=== PATIENT | female | born 1980 ===

== ENCOUNTER 2018-07-09 12:20 | Emergency (ER) | payer MEDICAID ==
[2018-07-09 12:20] VITALS: BMI 27.4
[2018-07-09 12:26] VITALS: O2SAT 100
[2018-07-09 12:44] LABS: HCG,QUALITATIVE URINE POSITIVE (NEGATIVE)
[2018-07-09] MEDS ORDERED: Sodium Chloride 0.9% 1,000 ML IV ONE (12:44)
[2018-07-09 12:56] LABS: SQUAMOUS EPITHIAL 3 /hpf (0-5); URINE BILIRUBIN NEGATIVE (NEGATIVE); URINE BLOOD NEGATIVE (NEGATIVE); URINE CLARITY Hazy (Clear); URINE COLOR Yellow (YELLOW); URINE GLUCOSE (UA) NORMAL (Normal); URINE LEUKOCYTE ESTERASE TRACE Leu/uL (Negative); URINE PROTEIN NEGATIVE (NEGATIVE); URINE UROBILINOGEN NORMAL mg/dL (0.2-1.0)
[2018-07-09] MEDS ORDERED: Sodium Chloride 0.9% 1,000 ML ONE (13:06)
[2018-07-09 13:08] LABS: BASO # 0.1 K/uL (0.0-0.2); BASO % 0.7 % (0.0-2.0); EOS # 0.1 K/uL (0.0-0.7); HEMOGLOBIN 12.6 g/dL (11.0-16.0); LYMPH # 1.9 K/uL (1.0-4.3); LYMPH % 13.9 % (20.0-40.0); MEAN CELL VOLUME 73.8 fL (81.0-99.0); MEAN CORPUSCULAR HEMOGLOBIN 24.5 pg (27.0-31.0); MEAN CORPUSCULAR HGB CONC 33.2 g/dL (33.0-37.0); MEAN PLATELET VOLUME 7.8 fL (7.2-11.7); MONO # 0.7 K/uL (0.0-0.8); MONO % 5.4 % (0.0-10.0); NEUT # 10.6 K/uL (1.8-7.0); NRBC % 0.1 % (0.0-2.0); RBC 5.16 Mil/uL (3.80-5.20); WHITE BLOOD COUNT 13.4 K/uL (4.8-10.8)
[2018-07-09 13:23] LABS: ALB/GLOB RATIO 1.3 (1.0-2.1); ALBUMIN 4.2 g/dL (3.5-5.0); ALT/SGPT 16 U/L (9-52); AST/SGOT 18 U/L (14-36); BLOOD UREA NITROGEN 10 mg/dL (7-17); CALCIUM 9.9 mg/dl (8.6-10.4); GFR NON-AFRICAN AMERICAN > 60
--- NOTE | 2018-07-09 14:06 | C.PDOC ---
History Of Present Illness 37 y/o female, M1, presents to ED for evaluation of suprapubic abdominal pain and vaginal bleeding for the last 2 days. Notes she had positive home test 3 days ago. She reports associated nausea. Otherwise, denies vomiting, diarrhea, dysuria, flank pain, fever, chills, or any other complaints at this time. Time Seen by Provider: 07/09/18 12:28 Chief Complaint (Nursing): Female Genitourinary History Per: Patient History/Exam Limitations: no limitations Onset/Duration Of Symptoms: Days Current Symptoms Are (Timing): Still Present Location Of Pain/Discomfort: Suprapubic Radiation Of Pain To:: None Quality Of Discomfort: "Pain" Associated Symptoms: Nausea. denies: Vomiting, Diarrhea Exacerbating Factors: None Alleviating Factors: None Additional History Per: Patient : 4 Para: 2 Miscarriage: 1 Past Medical History Reviewed: Historical Data, Nursing Documentation, Vital Signs Vital Signs: Last Vital Signs Temp 99 F 07/09/18 12:22 Pulse 93 H 07/09/18 12:22 Resp 20 07/09/18 12:22 BP 129/78 07/09/18 12:22 Pulse Ox 100 07/09/18 12:22 - Medical History PMH: Diabetes, HTN (pre-eclampsia) Denies: Hepatitis, HIV, Chronic Kidney Disease, Seizures, Sexually Transmitted Disease - [facility] Procedures DELIVERY OF PRODUCTS OF CONCEPTION, EXTERNAL APPROACH (06/02/16) EPISIOTOMY (01/17/14) MONITORING NOS (12/31/13) MEDICAL INDUCTION LABOR (01/17/14) MONITORING OF POC, CARDIAC RATE, VARITYPIST APPROACH (06/02/16) REPAIR OB LACERATION NEC (01/17/14) Family History: States: Unknown Family Hx - Social History Hx Alcohol Use: Yes Hx Substance Use: No - Immunization History Hx Tetanus Toxoid Vaccination: No Hx Influenza Vaccination: Yes Hx Pneumococcal Vaccination: No Review Of Systems Except As Marked, All Systems Reviewed And Found Negative. Constitutional: Negative for: Fever, Chills Gastrointestinal: Positive for: Nausea, Abdominal Pain. Negative for: Vomiting, Diarrhea Genitourinary: Positive for: Vaginal Bleeding. Negative for: Dysuria, Frequency Musculoskeletal: Negative for: Back Pain Physical Exam - Physical Exam Appears: Non-toxic, No Acute Distress Skin: Normal Color, Warm, Dry Head: Normacephalic Eye(s): bilateral: Normal Inspection Oral Mucosa: Moist Neck: Normal ROM, Supple Cardiovascular: Rhythm Regular, No Murmur Respiratory: Normal Breath Sounds, No Rales, No Rhonchi, No Wheezing Gastrointestinal/Abdominal: Soft, Tenderness (suprapubic), No Guarding, No Rebound, No Other ((-)McBurney's) Back: No CVA Tenderness Extremity: Normal ROM Neurological/Psych: Oriented x3, Normal Speech ED Course And Treatment - Laboratory Results Result Diagrams: 07/09/18 13:04 07/09/18 13:04 O2 Sat by Pulse Oximetry: 100 (RA) Pulse Ox Interpretation: Normal - CT Scan/US transvaginal US Other Rad Studies (CT/US): Read By Radiologist, Radiology Report Reviewed CT/US Interpretation: Accession No. : [id number]. Patient Name / ID : LARRY GRAHAM / [id number]. Exam Date : 07/09/2018 13:34:10 ( Approved ). Study Comment : Sex / Age : F / 37Y. Creator : Patrick Laguna MD. Dictator : Patrick Laguna MD. Software Development Leader : Pest Control Specialist : Patrick Laguna MD. Approver2 : Report Date : 07/09/2018 14:13:58. My Comment : . This report is currently processing and HAS NOT BEEN OFFICIALLY SIGNED BY THE PHYSICIAN - ESTIMATED TIME OF APPROVAL IS 07/09/2018 14:19. Date of service: 07/09/2018. PROCEDURE: OB ULTRASOUND TRANSVAGINAL. HISTORY: pelvic pain, bleeding; last menstrual period is unknown. COMPARISON: None available. TECHNIQUE: Ultrasound of the 1st trimester was performed using transvaginal and abdominal technique in multiple projections. FINDINGS: A single viable intrauterine gestation is identified as well as yolk sac and side a gestational sac with the cardiac activity of 142 beats per minute. Decidual reaction is mildly inhomogeneous which may reflect limited focal implantation related hemorrhage. No large hemorrhage appreciable at this time. Gestational sac measures 1.17 cm suggesting gestation of 5 weeks 2 days. Yolk sac measures 0.29 cm. Mean crown-rump length measurement is 0.40 cm correspo nding 6 weeks 1 day estimated gestation. Uterus is enlarged and anteverted measuring 11.1 x 5.7 x 3.7 cm. No suspicious myometrial findings. The cervix is normal in length at 3.8 cm with a closed internal os. Multiple nabothian cysts are identified associated. Right ovary measures 3.7 x 2.7 x 3.3 cm with corpus luteum cyst measuring 1.5 x 1.4 x 1.8 cm. Arterial color Doppler blood flow is identified within the right ovary. Left ovary measures 3.0 x 1.6 x 1.7 cm and also exhibits normal intra-ovarian arterial blood flow on spectral analysis. IMPRESSION: 1. A single viable intrauterine gestation is identified with mean crown-rump length indicating 6 week 1 day gestational age. No large subchorionic hemorrhage appreciable. Inhomogeneous decidual reaction may indicate implantation related hemorrhage on a minimal basis. 2. Right ovarian corpus luteum cyst 1.8 cm. Progress Note: Blood work, urinalysis, OB transvaginal ultrasound ordered and reviewed. Pt was given IV fluids and Tylenol for pain. Disposition Counseled Patient/Family Regarding: Studies Performed, Diagnosis, Need For Followup - Disposition Referrals: Anabel Vicente MD [Medical Doctor] - Disposition: HOME/ ROUTINE Disposition Time: 14:20 Condition: STABLE Additional Instructions: FOLLOW UP WITH [facility] [employer]ESS[facility] WITHIN 1 WEEK DRINK PLENTY OF FLUIDS, USE TYLENOL NEEDED IF YOU HAVE PAIN RETURN TO ER IF SYMPTOMS WORSEN Prescriptions: Acetaminophen [Tylenol 325mg tab] 650 mg PO Q6 PRN #30 tab PRN Reason: pain/fever Instructions: Bleeding With (DC) Forms: [employer] (Croatian) Print Language: GERMAN - Clinical Impression Clinical Impression: First trimester bleeding, Right ovarian cyst - Scribe Statement The provider has reviewed the documentation as recorded by the Scribe KP All medical record entries made by the Scribe were at my direction and personally dictated by me. I have reviewed the chart and agree that the record accurately reflects my personal performance of the history, physical exam, [facility] decision making, and the department course for this patient. I have also personally directed, reviewed, and agree with the discharge instructions and disposition.
--- NOTE | 2018-07-09 14:17 | US ---
Date of service: 07/09/2018 PROCEDURE: OB ULTRASOUND TRANSVAGINAL HISTORY: pelvic pain, bleeding; last menstrual period is unknown. COMPARISON: None available. TECHNIQUE: Ultrasound of the 1st trimester was performed using transvaginal and abdominal technique in multiple projections. FINDINGS: A single viable intrauterine gestation is identified as well as yolk sac and side a gestational sac with the cardiac activity of 142 beats per minute. Decidual reaction is mildly inhomogeneous which may reflect limited focal implantation related hemorrhage. No large hemorrhage appreciable at this time. Gestational sac measures 1.17 cm suggesting gestation of 5 weeks 2 days. Yolk sac measures 0.29 cm. Mean crown-rump length measurement is 0.40 cm corresponding 6 weeks 1 day estimated gestation. Uterus is enlarged and anteverted measuring 11.1 x 5.7 x 3.7 cm. No suspicious myometrial findings. The cervix is normal in length at 3.8 cm with a closed internal os. Multiple nabothian cysts are identified associated. Right ovary measures 3.7 x 2.7 x 3.3 cm with corpus luteum cyst measuring 1.5 x 1.4 x 1.8 cm. Arterial color Doppler blood flow is identified within the right ovary. Left ovary measures 3.0 x 1.6 x 1.7 cm and also exhibits normal intra-ovarian arterial blood flow on spectral analysis. IMPRESSION: 1. A single viable intrauterine gestation is identified with mean crown-rump length indicating 6 week 1 day gestational age. No large subchorionic hemorrhage appreciable. Inhomogeneous decidual reaction may indicate implantation related hemorrhage on a minimal basis. 2. Right ovarian corpus luteum cyst 1.8 cm.
[2018-07-09 14:32] VITALS: BP 128/66; PULSE 87; RESP 18; TEMP 98.9
== END 2018-07-09 14:31 | disposition home or self-care (01) ==
LOC: C.ER 12:20
DX: O20.9 Hemorrhage in early pregnancy, unspecified (principal); O34.81 Maternal care for other abnormalities of pelvic organs, first trimester; N83.201 Unspecified ovarian cyst, right side; Z3A.01 Less than 8 weeks gestation of pregnancy
CPT/HCPCS: 76805; 76817; 80053; 81001; 84702; 84703; 85025; 86850; 86900; 96360; 99285; J7030